=== PATIENT | female | born 2005 | race Caucasian/White ===

== ENCOUNTER 2023-11-05 14:23 | Emergency (ER) | payer MEDICAID ==
[~2023-11-05] VITALS: Ht 162.6 cm; Wt 65.8 kg
[2023-11-05 14:48] VITALS: BP 151/94; PULSE 112; RESP 18; TEMP 97.6; O2SAT 97
[2023-11-05 17:28] LABS: BASOPHILS # (AUTO) 0.1 K/uL (0.00-0.22); BASOPHILS % (AUTO) 0.5 % (0.0-2.0); EOSINOPHILS # (AUTO) 0.1 K/uL (0-0.4); EOSINOPHILS % (AUTO) 0.5 % (0.0-4.0); HEMATOCRIT 43.8 % (36-48); HEMOGLOBIN 14.9 g/dL (12.0-16.0); LYMPHOCYTES # (AUTO) 3.3 K/uL (2.5-16.5); LYMPHOCYTES % (AUTO) 31.5 % (20.5-51.1); MEAN CORPUSCULAR HEMOGLOBIN 29 pg (27-31); MEAN CORPUSCULAR HGB CONC 34 g/dL (33-37); MEAN CORPUSCULAR VOLUME 84.6 fL (80-94); MONOCYTES # (AUTO) 0.7 K/uL (0.8-1.0); MONOCYTES % (AUTO) 6.5 % (1.7-9.3); NEUTROPHILS # (AUTO) 6.5 K/uL (1.8-7.7); PLATELET COUNT (AUTO) 335 K/uL (140-450); RED BLOOD CELL COUNT(AUTO) 5.18 MIL/uL (4.20-5.40); RED CELL DISTRIBUTION WIDTH 11.8 % (11.6-13.7); WHITE BLOOD COUNT (AUTO) 10.6 K/uL (4.5-11.0)
[2023-11-05 17:37] LABS: ANION GAP 12.7 (8-16); CALCIUM 9.7 mg/dL (8.5-10.1); CREATININE 0.5 mg/dL (0.6-1.3); POTASSIUM 3.7 mmol/L (3.5-5.1)
[2023-11-05] MEDS ORDERED: PROP20TA29 PO (19:57)
[2023-11-05 20:29] VITALS: PULSE 100
== END 2023-11-05 20:29 | disposition home or self-care (01) ==
LOC: MED 14:23
DX: E05.90 Thyrotoxicosis, unspecified without thyrotoxic crisis or storm (principal); R00.0 Tachycardia, unspecified; Z79.899 Other long term (current) drug therapy
CPT/HCPCS: 36415; 80048; 81025; 84439; 84443; 85025; 93005; 99284

== ENCOUNTER 2023-11-14 09:03 | Emergency (ER) | payer MEDICAID ==
[~2023-11-14] VITALS: Ht 162.6 cm; Wt 57.2 kg
[~2023-11-14 09:03] MED LIST: PROP20TA29 PO
[2023-11-14 09:15] VITALS: BP 125/71; PULSE 103; RESP 16; TEMP 98.8; O2SAT 97
== END 2023-11-14 10:58 | disposition home or self-care (01) ==
LOC: MED 09:03
DX: E03.9 Hypothyroidism, unspecified (principal); R00.0 Tachycardia, unspecified; Z79.899 Other long term (current) drug therapy
CPT/HCPCS: 99281

== ENCOUNTER 2024-06-03 10:06 | Emergency (ER) | payer MEDICAID, OTHER ==
[~2024-06-03] VITALS: Ht 165.1 cm; Wt 63.5 kg
[2024-06-03 10:17] VITALS: BP 99/63; PULSE 82; RESP 20; TEMP 98.1; O2SAT 99
[2024-06-03 10:30] VITALS: O2SAT 99
[2024-06-03 11:10] LABS: BASOPHILS # (AUTO) 0.1 K/uL (0.00-0.22); BASOPHILS % (AUTO) 1.3 % (0.0-2.0); EOSINOPHILS % (AUTO) 0.5 % (0.0-4.0); HEMATOCRIT 40.1 % (36-48); HEMOGLOBIN 13.7 g/dL (12.0-16.0); LYMPHOCYTES # (AUTO) 2.2 K/uL (2.5-16.5); LYMPHOCYTES % (AUTO) 25.6 % (20.5-51.1); MEAN CORPUSCULAR HEMOGLOBIN 31 pg (27-31); MEAN CORPUSCULAR HGB CONC 34 g/dL (33-37); MEAN CORPUSCULAR VOLUME 89.2 fL (80-94); MONOCYTES # (AUTO) 0.9 K/uL (0.8-1.0); MONOCYTES % (AUTO) 10.1 % (1.7-9.3); NEUTROPHILS # (AUTO) 5.4 K/uL (1.8-7.7); NEUTROPHILS % (AUTO) 62.5 % (42.2-75.2); PLATELET COUNT (AUTO) 304 K/uL (140-450); RED BLOOD CELL COUNT(AUTO) 4.49 MIL/uL (4.20-5.40); RED CELL DISTRIBUTION WIDTH 12.8 % (11.6-13.7); WHITE BLOOD COUNT (AUTO) 8.6 K/uL (4.8-10.8)
[2024-06-03 11:16] LABS: ANION GAP 9.7 (8-16); CALCIUM 8.5 mg/dL (8.5-10.1); CARBON DIOXIDE 26.9 mmol/L (21-32); CREATININE 0.6 mg/dL (0.6-1.3); POTASSIUM 3.6 mmol/L (3.5-5.1)
[2024-06-03 11:25] LABS: BLOOD, URINE 2+ (NEGATIVE); COLOR,URINE YELLOW (YELLOW); PROTEIN,URINE NEGATIVE (NEGATIVE); UGLUCOSE NEGATIVE (NEGATIVE)
[2024-06-03 11:26] LABS: BILIRUBIN,URINE NEGATIVE (NEGATIVE); LEUKOCYTE ESTERASE ,URINE NEGATIVE (NEGATIVE); NITRITE, URINE NEGATIVE (NEGATIVE)
[2024-06-03 11:33] LABS: BACTERIA,URINE FEW /HPF (None Seen); SQUAMOUS EPITHELIAL CELL,UR 4-10 (MOD) /LPF (0-3 (FEW)); WBC,URINE 0-5 /HPF (0-5)
[2024-06-03 11:34] LABS: APPEARANCE,URINE HAZY (CLEAR)
[2024-06-03 12:50] VITALS: BP 114/64; PULSE 70; RESP 16; TEMP 98.1; O2SAT 100
== END 2024-06-03 13:57 | disposition home or self-care (01) ==
LOC: MED 10:06
DX: O20.0 Threatened abortion (principal); Z3A.00 Weeks of gestation of pregnancy not specified; Z79.899 Other long term (current) drug therapy; Z88.8 Allergy status to other drugs, medicaments and biological substances
CPT/HCPCS: 36415; 76817; 80048; 81001; 81025; 84702; 85025; 86900; 86901; 99284; Q0092

== ENCOUNTER 2024-06-23 19:25 | Emergency (ER) | payer OTHER ==
[~2024-06-23] VITALS: Ht 165.1 cm; Wt 65.3 kg
[2024-06-23 19:33] VITALS: BP 103/65; PULSE 75; RESP 18; TEMP 98.5; O2SAT 99
[2024-06-23] MEDS: methIMAzole 5 MG TAB PO ONE (20:05)
[2024-06-23] MEDS ORDERED: TAP5 PO (20:06)
[2024-06-23 20:10] VITALS: BP 103/65; PULSE 75; RESP 18; TEMP 98.5; O2SAT 99
== END 2024-06-23 20:10 | disposition home or self-care (01) ==
LOC: MED 19:25
DX: E05.90 Thyrotoxicosis, unspecified without thyrotoxic crisis or storm (principal); R07.89 Other chest pain; Z79.899 Other long term (current) drug therapy; Z88.1 Allergy status to other antibiotic agents
CPT/HCPCS: 93005; 99283